=== PATIENT | male | born 1965 | race American Indian/Alaskan Native ===

== ENCOUNTER 2025-06-13 10:15 | Emergency (ER) | payer MEDICAID, SELFPAY ==
[2025-06-13 10:23] VITALS: BP 129/79; PULSE 80; RESP 16; TEMP 36.7; O2SAT 97; BMI 30.1
--- NOTE | 2025-06-13 10:38 | EDNOTE_ITS ---
ED Back Injury Pain RME/HPI General Chief Complaint: Back Pain/Injury Stated Complaint: Right upper back pain this morning Time Seen by Provider: 06/13/25 10:18 Source: patient Arrival date/time: 06/13/25 10:15 59-year-old male with no known medical history presents to the emergency room with a chief complaint of midthoracic back pain that he has been dealing with for months intermittently. Mode of arrival: ambulatory Limitations: no limitations Related Data Allergies Allergy/AdvReac Type Severity Reaction Status Date / Time No Known Allergies Allergy Verified 06/13/25 10:18 Review of Systems Review of Systems Systems Reviewed: All systems reviewed, normal except as documented Constitutional Constitutional: Reports system reviewed and no additional complaints, except as documented, Denies fatigue, Denies fever(s), Denies headache(s) and Denies weakness Eyes Eyes: Reports system reviewed and no additional complaints, except as documented, Denies blurry vision and Denies change in vision ENT Ears, Nose, Mouth, and Throat: Reports system reviewed and no additional complaints, except as documented, Denies otalgia, Denies headache(s), Denies nasal congestion, Denies throat swelling and Denies vertigo Cardiovascular Cardiovascular: Reports system reviewed and no additional complaints, except as documented, Denies chest pain, Denies dyspnea and Denies dyspnea on exertion Respiratory Respiratory: Reports system reviewed and no additional complaints, except as documented, Denies chest congestion, Denies cough, Denies dyspnea, Denies dyspnea on exertion and Denies wheezing Gastrointestinal Gastrointestinal: Reports system reviewed and no additional complaints, except as documented, Denies abdominal pain, Denies cramping, Denies nausea and Denies vomiting Genitourinary Genitourinary: Reports system reviewed and no additional complaints, except as documented, Denies dysuria and Denies hematuria Musculoskeletal Musculoskeletal: Reports system reviewed and no additional complaints, except as documented and Reports back pain Integumentary/Breasts Skin/Breast: Reports system reviewed and no additional complaints, except as documented and Denies wounds Neurologic Neurologic: Reports system reviewed and no additional complaints, except as documented, Denies confusion, Denies headache(s), Denies lack of coordination, Denies vertigo and Denies weakness Psychiatric Psychiatric: Reports system reviewed and no additional complaints, except as documented, Denies anxiety, Denies confusion, Denies depression, Denies paranoia, Denies suicidal ideation and Denies tactile hallucinations Endocrine Endocrine: Reports system reviewed and no additional complaints, except as documented and Denies fatigue Hematologic/Lymphatic Hematologic/Lymphatic: Reports system reviewed and no additional complaints, except as documented and Denies lymphadenopathy Allergic/Immunologic Allergic/Immunologic: Reports system reviewed and no additional complaints, except as documented, Denies throat swelling, Denies urticaria and Denies wheezing Past Medical History Social History SMOKING STATUS: Former smoker ED Exam General Limitations: Present no limitations General appearance: Present alert and in no apparent distress Head Head exam: Present atraumatic Eye Eye exam: Present normal appearance, PERRL and EOMI ENT ENT exam: Present normal exam, normal oropharynx and mucous membranes moist Neck Neck exam: Present normal inspection, full ROM and trachea midline Chest Chest inspection: Present normal inspection and symmetric chest wall rise Respiratory Respiratory exam: Present normal lung sounds bilaterally Cardiovascular Cardiovascular exam: Present regular rate, normal rhythm and normal heart sounds Abdominal Exam Abdominal exam: Present soft and normal bowel sounds Extremities Exam Extremities exam: Present normal inspection and full ROM Back Exam Back exam: Present normal inspection, full ROM, tenderness and vertebral tenderness; Absent CVA tenderness (R) or CVA tenderness (L) Back 1 view image: 2 1. Patient is having right-sided thoracic back pain with palpation Neurological Exam Neurological exam: Present alert, oriented X3 and CN II-XII intact Psychiatric Psychiatric exam: Present normal affect and normal mood Skin Skin exam: Present warm, dry, intact and normal color Course Quality Measures none Orders Category Date Time Status XR thoracic spine 3V Stat Exams 06/13/25 10:38 Completed Vital Signs Vital signs: Vital Signs Temperature 98.0 F 06/13/25 10:23 Pulse Rate 80 06/13/25 10:23 Respiratory Rate 16 06/13/25 10:23 Blood Pressure 129/79 06/13/25 10:23 Pulse Oximetry (%) 97 06/13/25 10:23 Oxygen Delivery Method Room Air 06/13/25 10:23 Back Pain / Injury MDM Narrative MDM Narrative:: 59-year-old male with no known medical history presents to the emergency room with a chief complaint of midthoracic back pain that he has been dealing with for months intermittently. Patient is hemodynamically stable and in no apparent distress Patient states this pain is worse when he wakes up in the morning. Patient states he has been dealing with this back pain for months intermittently Physical examination shows pain and tenderness with palpation to the thoracic area of the patient's spine that radiates to the right side of his back. There is no CVA tenderness there is no lumbar pain the patient denies any chest pain palpitations or any difficulty breathing. X-ray of the thoracic back was completed and was negative for any acute findings and showed some scoliosis and some degenerative disc disease Patient was discharged and educated to follow-up with primary care provider in the next 24 to 48 hours and return to the emergency room for any evidence of worsening signs or symptoms Patient data External records reviewed:: [facility] previous records Clinical information provided by:: patient Social determinants that could affect healthcare access:: none Patient has the following chronic illnesses:: No chronic illness How is presenting disease/condition affected by chronic disease/condition?: no chronic disease Evaluation data The following diagnostics were reviewed and interpreted by me:: lab results and radiology exam(s) Lab and/or radiology exams considered but not ordered:: Labs and radiology exams considered and ordered Interpretation Summary: Thoracic [id number]: Thoracic dextroscoliosis 8 degrees No thoracic fracture Mild diffuse thoracic degenerative disc disease Prominent thoracic spondylosis IMPRESSION: Mild diffuse thoracic degenerative disc disease Medications / Prescriptions Medications or Prescriptions considered but not ordered:: Medication not given Medication administrations:: Medication not given Consultations Consultation(s) initiated? (list below): No Diagnosis Differential diagnosis back pain/injury: thoracic back pain and other (Thoracic fracture/scoliosis) Most likely diagnosis given after review of the tests above:: Scoliosis Admission Indicated Admission indicated?: not indicated Admission Request Was there a request for admission?: No Disposition Plan Disposition Plan: Discharge Discharge Attestation Discharge Attestation: The patient and all family members were given an opportunity to ask questions and understood the discharge instructions. Discharge instructions specifically effects, indications for sooner follow up or return to the emergency department, and the expected course of current diagnosis. Patient condition: Stable Discharge Plan Plan Patient Disposition: HOME (Self Care) Discharge Disposition comment: Stable Prescriptions/Referrals Referrals: Dl Ac MD [Primary Care Provider] - In 1 week Problem List Clinical Impression: Degenerative disc disease, Scoliosis Patient/Caregiver Discharge Instructions Education Materials: Understanding Scoliosis, Anatomy of a Normal Spine Additional Instructions: Please follow-up with your primary care provider in the next 24 to 48 hours An x-ray of your mid back was completed and shows some degenerative disc disease and some mild scoliosis. This could be the source of your pain. Please follow- up with your primary care provider for further management. For any evidence of worsening signs or symptoms return to the emergency room immediately Print Language: Gibraltarian Stand Alone Forms: Sandrita Award Info., Patient Portal Info Letter PA/PROGRESSIVE CARE UNIT REGISTERED NURSE Supervising Physician PA/PROGRESSIVE CARE UNIT REGISTERED NURSE Supervising Physician: Dr. Jason MCKEON Attestation MD Attestation The patient was seen by the midlevel practitioner. I, the co-signing physician, was present during the entire ER visit. While I did not physically examine the patient, I was available for consultation as needed. I agree with the plan and documentation.
--- NOTE | 2025-06-13 10:38 | XR_ITS ---
Examination: Thoracic spine 3 views TECHNIQUE: AP lateral coned lateral upper dorsal spine 3 views Date and time: June 13, 2025 1046 hours INDICATIONS: Back pain beginning 3 weeks ago. FINDINGS: Thoracic dextroscoliosis 8 degrees No thoracic fracture Mild diffuse thoracic degenerative disc disease Prominent thoracic spondylosis IMPRESSION: Mild diffuse thoracic degenerative disc disease
== END 2025-06-13 12:05 | disposition home or self-care (01) ==
PROVIDERS: Emergency Provider Family Medicine; PCP Family Medicine
DX: M51.34 Other intervertebral disc degeneration, thoracic region (principal); M41.9 Scoliosis, unspecified
CPT/HCPCS: 72072; 99283

== ENCOUNTER 2025-06-18 18:16 | Emergency (ER) | payer MEDICAID, SELFPAY ==
[2025-06-18 18:32] VITALS: BP 141/76; PULSE 68; RESP 16; TEMP 37.1; O2SAT 98; BMI 30.1
--- NOTE | 2025-06-18 18:44 | XR_ITS ---
Examination: PA chest single view TECHNIQUE: PA upright chest single view Date and time: June 18, 2025, 1848 hours INDICATIONS: Chest pain beginning 3 days ago. FINDINGS: Normal heart size. Lungs are clear. The osseous structures are intact. IMPRESSION: No active disease.
[2025-06-18 19:18] LABS: Collection Type, Urine Voided; Squamous Epithelial Cell,Urine 0 /hpf (0-5)
[2025-06-18 19:23] LABS: Bilirubin,Urine Negative (Negative); Blood,Urine Negative (Negative); Clarity,Urine Clear (Clear/Hazy); Color,Urine Colorless (Lt Yel-Yel); Glucose, Urine Negative (Negative); Ketones,Urine Negative (Negative); Leukocyte Esterase,Urine Negative (Negative); Nitrite,Urine Negative (Negative); PH,Urine 6.0 (5.0-7.0); Protein,Urine Negative (Neg - Trace); RBC,Urine < 1 /hpf (0-3); Specific Gravity,Urine 1.007 (1.001-1.035); Urobilinogen,Urine Negative mg/dL (0.0-1.0); WBC,Urine < 1 /hpf (0-5)
[2025-06-18 20:31] LABS: Basophils # (Auto) 0.1 Thou/mm3 (0.0-0.2); Basophils % (Auto) 1 % (0-2.5); Eosinophils # (Auto) 0.2 Thou/mm3 (0.0-0.5); Eosinophils % (Auto) 4 % (0-10); Hematocrit 38.8 % (41.0-53.0); Hemoglobin 13.0 g/dL (13.5-16.0); Immature Granulocytes Auto 0.00 Thou/mm3 (0.00-0.00); Lymphocytes # (Auto) 2.1 Thou/mm3 (1.0-4.8); Lymphocytes % (Auto) 42 % (10-50); Mean Corpuscular HGB Conc 33.5 g/dl (31.0-37.0); Mean Corpuscular Hemoglobin 29.2 pg (25.0-35.0); Mean Corpuscular Volume 87 fL (80-100); Monocytes # (Auto) 0.6 Thou/mm3 (0.0-0.8); Monocytes % (Auto) 12 % (0-12); Neutrophils # (Auto) 2.1 Thou/mm3 (1.8-7.7); Neutrophils % (Auto) 42 % (37-80); Nucleated Red Blood Cell # 0.00 Thou/mm3 (0.00-0.00); Nucleated Red Blood Cell % 0 /100 WBC (0); Platelet Count 216 Thou/mm3 (140-440); RDW Standard Deviation 40.4 fL (35.1-43.9); Red Blood Count 4.45 Miln/mm3 (4.50-5.90); White Blood Count 5.0 Thou/mm3 (3.8-10.6)
[2025-06-18 20:51] LABS: Alanine Aminotransferase 17 U/L (10-49); Albumin, Serum 4.3 gm/dL (3.5-5.0); Albumin/Globulin Ratio 2.0 (1.2-2.2); Alkaline Phosphatase 75 U/L (46-116); Anion Gap 8 (7-16); Aspartate Amino Transferase 19 U/L (0-34); BUN/Creatinine Ratio 9 Ratio (12-20); Bilirubin,Total 0.3 mg/dL (0.3-1.2); Blood Urea Nitrogen 8 mg/dL (9-23); Calcium 9.3 mg/dL (8.3-10.6); Calcium (Corrected) 9.3 mg/dL (8.5-10.1); Carbon Dioxide 27.6 mMol/L (20.0-31.0); Chloride 105 mMol/L (98-107); Creatinine (Component) 0.9 mg/dL (0.6-1.3); Estimated Creatinine Clearance 103.6 mL/min (>60); Globulin 2.1 gm/dL (2.3-3.5); Glucose 94 mg/dL (74-106); Osmolality,Calculated 279 (275-295); Potassium 3.6 mMol/L (3.4-5.1); Sodium 141 mMol/L (136-145); Total Protein 6.4 gm/dL (5.7-8.2); eGFR > 60 See Note
--- NOTE | 2025-06-18 21:45 | EDNOTE_ITS ---
ED General RME/HPI General Chief complaint: General Adult/Misc Complain Stated complaint: temp is low, feels tired Time Seen by Provider: 06/18/25 18:30 Arrival date/time: 06/18/25 18:16 This is a case of 59-year-old male with no medical history came in in the emergency room due to multiple symptoms history of present illness started today when the patient checked his temperature and noted to be low approximately 94 Fahrenheit patient denies any fever or chills denies any chest pain but with mild shortness of breath and generalized weakness today patient was here June 13, 2025 where complaining of mid back pain where the x-ray was performed and noted to have dextroscoliosis and DDD of the thoracic area patient went to the chiropractor where they performed the procedure which improved and resolve the pain patient was fine until today when the patient had shortness of breath and generalized weakness denies any chest pain numbness weakness headache or dizziness Limitations: no limitations Related Data Previous Rx's ?Medication ?Instructions ?Recorded albuterol sulfate 90 mcg/actuation 2 puff inhalation Q 6H PRN 06/18/25 aerosol inhaler (Ventolin HFA) shortness of breath or wheezing #8.5 grams ibuprofen 800 mg tablet 800 mg PO Q8H PRN pain #20 t abs 06/18/25 Allergies Allergy/AdvReac Type Severity Reaction Status Date / Time No Known Allergies Allergy Verified 06/18/25 18:19 Review of Systems Review of Systems Systems Reviewed: All systems reviewed, normal except as documented Constitutional Constitutional: Reports system reviewed and no additional complaints, except as documented, Reports as per HPI, Denies chills, Denies fever(s), Denies frequent falls, Denies headache(s), Denies snoring and Reports weakness Eyes Eyes: Denies loss of vision ENT Ears, Nose, Mouth, and Throat: Denies abnormal hearing, Denies disequilibrium, Denies dizziness and Denies headache(s) Cardiovascular Cardiovascular: Reports system reviewed and no additional complaints, except as documented, Reports as per HPI, Denies chest pain, Denies chest pain at rest, Reports dyspnea and Denies dyspnea on exertion Respiratory Respiratory: Reports system reviewed and no additional complaints, except as documented, Denies chest congestion, Denies cough, Reports dyspnea, Denies dyspnea on exertion, Denies excessive phlegm production, Denies hemoptysis, Denies pain on inspiration, Denies pain with cough, Denies snoring, Denies stridor and Denies wheezing Gastrointestinal Gastrointestinal: Reports system reviewed and no additional complaints, except as documented, Reports as per HPI, Denies abdominal pain, Denies diarrhea, Denies nausea and Denies vomiting Musculoskeletal Musculoskeletal: Reports system reviewed and no additional complaints, except as documented, Reports as per HPI, Denies abnormal gait and Denies numbness Neurologic Neurologic: Reports system reviewed and no additional complaints, except as documented, Reports as per HPI, Denies abnormal gait, Denies abnormal hearing, Denies abnormal movements, Denies abnormal speech, Denies burning sensations, Denies confusion, Denies convulsions, Denies disequilibrium, Denies dizziness, Denies localized weakness, Denies frequent falls, Denies headache(s), Denies lack of coordination, Denies loss of vision, Denies memory loss, Denies numbness, Denies other visual disturbances, Denies paresthesias, Denies radicular pain, Denies restless legs, Denies seizure-like activity, Denies sensory deficit and Reports weakness Psychiatric Psychiatric: Denies confusion and Denies memory loss Allergic/Immunologic Allergic/Immunologic: Denies wheezing Past Medical History Social History SMOKING STATUS: Former smoker ED Exam General Limitations: Present no limitations General appearance: Present alert, in no apparent distress and other (Awake alert oriented not in distress nontoxic looking) Head Head exam: Present atraumatic, normocephalic and normal inspection Eye Eye exam: Present normal appearance, PERRL and EOMI ENT ENT exam: Present normal exam, normal oropharynx, mucous membranes moist and other (ENT exam is normal and unremarkable); Absent mucous membranes dry or TM's normal bilaterally Neck Neck exam: Present normal inspection, full ROM, trachea midline and other (Negative for meningeal sign) Chest Chest inspection: Present normal inspection and symmetric chest wall rise Respiratory Respiratory exam: Present normal lung sounds bilaterally; Absent respiratory distress, wheezes, stridor, accessory muscle use or prolonged expiratory phase Cardiovascular Cardiovascular exam: Present regular rate, normal rhythm and normal heart sounds; Absent bradycardia, tachycardia, irregular rhythm, systolic murmur or diastolic murmur Abdominal Exam Abdominal exam: Present soft and normal bowel sounds; Absent distention, tenderness, guarding, rebound, rigidity or diminished bowel sounds Extremities Exam Extremities exam: Present normal inspection and full ROM Back Exam Back exam: Present normal inspection and full ROM Neurological Exam Neurological exam: Present alert, oriented X3, CN II-XII intact, normal gait, reflexes normal and other (Awake alert oriented x 4 no focal deficit GCS 15/15 no slurring speech memory intact no facial droop CN II to XII is normal negative Babinski steady gait motor sensory reflex were all normal); Absent motor sensory deficit Psychiatric Psychiatric exam: Present normal affect and normal mood Skin Skin exam: Present warm, dry, intact and normal color Course Quality Measures none Orders Category Date Time Status Bedside COVID-19 Antigen Test NOW Care 06/18/25 18:44 Active Bedside Influenza A&B Antigen Test NOW Care 06/18/25 18:44 Completed XR chest 1V portable Stat Exams 06/18/25 18:44 Completed CBC Stat Lab 06/18/25 19:50 Completed CMP [Comprehensive Metabolic Panel] Stat Lab 06/18/25 19:50 Completed Urinalysis Stat Lab 06/18/25 19:04 Completed Vital Signs Vital signs: Vital Signs Temperature 98.7 F 06/18/25 18:32 Pulse Rate 68 06/18/25 18:32 Respiratory Rate 16 06/18/25 18:32 Blood Pressure 141/76 H 06/18/25 18:32 Pulse Oximetry (%) 98 06/18/25 18:32 Oxygen Delivery Method Room Air 06/18/25 18:32 Patient is afebrile not tachycardic not tachypneic I did not see any hypothermia BP stable not hypoxic oxygen saturation is 98% in room air Discharge Plan Plan Patient Disposition: HOME (Self Care) Patient condition on transfer: Stable Prescriptions/Referrals Prescriptions/Med Rec: New albuterol sulfate [Ventolin HFA] 90 mcg/actuation HFA aerosol inhaler 2 puff inhalation Q6H PRN (Reason: shortness of breath or wheezing) Qty: 8.5 0RF ibuprofen 800 mg tablet 800 mg PO Q8H PRN (Reason: pain) Qty: 20 0RF Referrals: Kumar Duarte PA-C [Primary Care Provider] - In 1 week Problem List Clinical Impression: Shortness of breath, Generalized weakness Patient/Caregiver Discharge Instructions Education Materials: ED Shortness of Breath (Dyspnea), ED Weakness (Uncertain Cause) Additional Instructions: Follow-up with your primary care physician in 2 days for reevaluation worsening symptoms of symptoms recurrence persistence or any emergent concern call 911 or go to the nearest emergency room take your medication as directed increase water intake keep hydrated this aadvised Print Language: Thai Stand Alone Forms: Sandrita Award Info., Patient Portal Info Letter SHILOH/BIRDIE Supervising Physician AMMON Supervising Physician: dr hilton [facility] Narrative Sign out note: This is a case of 59-year-old male with no medical history came in in the emergency room due to multiple symptoms history of present illness started today when the patient checked his temperature and noted to be low approximately 94 Fahrenheit patient denies any fever or chills denies any chest pain but with mild shortness of breath and generalized weakness today patient was here June 13, 2025 where complaining of mid back pain where the x-ray was performed and noted to have dextroscoliosis and DDD of the thoracic area patient went to the chiropractor where they performed the procedure which improved and resolve the pain patient was fine until today when the patient had shortness of breath and generalized weakness denies any chest pain numbness weakness headache or dizziness physical examination and neurological exam is normal and unremarkable vital signs stable BP stable not tachycardic not tachypneic afebrile no hypothermia not hypoxic oxygen saturation is normal in room air patient lung sound is clear no crackles no rales no retraction no stridor heart normal rate regular rhythm no murmur neurological exam is also normal patient chest x-ray is normal COVID flu is negative patient CBC CMP were also normal at this point the patient symptoms is unknown patient was advised to continue to monitor patient his symptoms and for any worsening symptoms recurrence persistent he is welcome to return here in the emergency room immediately he was also advised to follow- up with PCP in 2 days and he was prescribed with Ventolin for shortness of breath and ibuprofen for pain patient understood very well the discharge instruction Patient was discharged with comfortable condition walking with stable gait. Patient verbalized no further complains explained diagnosis and answered patient question. Patient is comfortable with the proposed management plan including the need to follow up with his/her primary care physician and any specialist if applicable Discussed patient for any urgent condition or worsening sx, He/She needed to go to emergency room immediately or call 911. Patient acknowledge the responsibility to follow up as instructed and to monitor her/his symptoms. For any persistence of the symptoms for more than 3-5 days return precaution advised. Discussed the result of the test and was given printed discharge instruction Clinical Information Provided by patient Medical Records Reviewed [facility] Reviewed Meds/Rx Considered, not Ordered None (Given) Describe details: Given Labs/Rad/Tests considered, not Ordered None (CBC CMP) Describe details: Reviewed Chronic Illness/Social Conditions which may negatively complicate care or outcome(s)-explain: None or not applicable Lab Interpretation Lab(s) interpretation(s): Reviewed Imaging Provider imaging interpretation(s): Reviewed Radiology reports / interpretation(s): Reviewed given Diagnosis Differential diagnosis: Shortness of breath generalized weakness Differential dx and/or dx ruled out: Shortness of breath generalized weakness Most likely dx, and/or detailed dx discussion: Shortness of breath generalized weakness Dispositon Disposition: Discharge Home
== END 2025-06-18 22:13 | disposition home or self-care (01) ==
PROVIDERS: Nurse Practitioner Family; Emergency Provider Emergency Medicine; PCP Physician Assistant Medical
DX: R06.02 Shortness of breath (principal); R53.1 Weakness
CPT/HCPCS: 36415; 71045; 80053; 81001; 85025; 87400; 87811; 99283